=== PATIENT | female | born 1995 | race Caucasian/White ===

== ENCOUNTER → 2018-10-12 | Outpatient (CLI) | payer BC ==
[2018-09-04 18:37] VITALS: BMI 28.9
[~2018-10-12] MED LIST: ALB18R INH; ALB6.7R INH; ALBU8.5H IH; ALPR-429 PO; ASPI-1471 PO; DIPH0.5S2 IM; EPIN0.3P15 IM; FLUT1DIS28 IH; LEVO-3 PO; LEVO1TAB30; LEVO75TA73 PO; NIFE10CA38 PO; ONDA4TAB97 PO; PRED-1 PO; PREN-148 PO; PROM12.557 PO; RHO(150015 IM; SUMA50TA34 PO
--- NOTE | 2018-10-12 14:11 | RADIOLOGY IMAGING REPORT ---
FACILITY: [facility] [place] PATIENT NAME: Prosper Bonner : 1995 MR: [id number] V: [id number] EXAM DATE: ORDERING PHYSICIAN: CHENG LIZ TECHNOLOGIST: Location: [facility] Patient: Prosper Bonner : 1995 Visit/Account:[id number] Date of Sevice: 10/12/2018 EXAMINATION: Ultrasound twin transabdominal OB > 14 weeks HISTORY: Twin . COMPARISON: 09/21/2018. TECHNIQUE: Transabdominal imaging was performed for assessment of the amniotic fluid index. FINDINGS/IMPRESSION: Fetus A: Amniotic fluid index: 16.22 cm. Largest pocket: 4.5 cm. heart rate: 163 bpm. Fetus B: Amniotic fluid index: 18.63 cm. Largest pocket: 6.6 cm. heart rate: 123 bpm. Report Dictated By: Bradford Barnett MD at 10/12/2018 1:58 PM Report E-Signed By: Bradford Barnett MD at 10/12/2018 2:02 PM WSN:[id number]
== END ==
LOC: RAD 10:33
PROVIDERS: ATTEND Obstetrics & Gynecology
DX: O30.032 Twin pregnancy, monochorionic/diamniotic, second trimester (principal)